=== PATIENT | female | born 1960 | race Caucasian/White ===

== ENCOUNTER → 2017-02-18 | Outpatient (CLI) | payer BC ==
--- NOTE | 2017-02-18 11:41 | P.HPOB ---
History of Present Illness H&P Date: 02/18/17 Chief Complaint: The patient is here for her routine gynecologic exam and mammogram. This is a 56-year-old with an LMP of 2001. The patient is status post [facility] BSO for benign reasons. She is without gynecologic complaints. Review of Systems She is getting about 16 pounds over the last year. She denies respiratory or cardiac problems. G.I. she has occasional loose stools and cramping with certain foods. Past Medical History Additional Past Medical History / Comment(s): Seasonal allergies. Past Surgical History: Hysterectomy ([facility] BSO in 2001) Additional Past Surgical History / Comment(s): Also left shoulder surgery, appendectomy and multiple colonoscopies in the past. Her most recent colonoscopy was in 2013. Past Psychological History: No Psychological Hx Reported Smoking Status: Former smoker (The patient quit smoking in 04/2016.) Past Alcohol Use History: Rare (Patient has about 1 alcohol containing drink per month.) Past Drug Use History: None Reported Additional History: The patient has been since 1988. 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 - Past Family History Father Family Medical History: Cancer (Father had lung cancer.) Additional Family Medical History / Comment(s): Also mother had pulmonary fibrosis and two maternal aunts had breast cancer. Medications and Allergies Home Medications and Allergies Comment(s): Multivitamin 1 daily, probiotic one daily, Zyrtec 1 daily, vitamin C 1 daily. Allergies Allergy/AdvReac Type Severity Reaction Status Date / Time nitrofurantoin Allergy Rapid Verified 02/18/17 11:31 [From Macrobid] Heart Rate Exam - Vital Signs Vital signs: Blood pressure 151/80, height 5'3", weight 217 pounds, BMI 38, temperature 97.9 , pulse 80. This is a well-developed well-nourished white female who is alert and oriented times 3 in no acute distress. HEENT: Within normal limits. NECK: Supple without mass or thyromegaly. CHEST AND LUNGS: Clear to auscultation. HEART: Regular rate and rhythm. BREASTS: Are without mass or discharge. AXILLARY EXAM: Negative for adenopathy. BACK: Negative for CVA tenderness. ABDOMEN: Obese,Soft, nontender, without palpable masses at rest. With Valsalva there is a 4 cm hernia at the low transverse incision. The hernia is soft and nontender. She has known about this hernia since the time after her appendectomy and it is asymptomatic. PELVIC EXAM: Normal external genitalia with mild atrophy. Vagina reveals a grade 2 cystocele. Vagina otherwise appears unremarkable. There is no unusual discharge. There are no palpable adnexal masses or tenderness. RECTAL EXAM: recto vaginal exam is negative for mass or tenderness and is negative for occult blood. EXTREMITIES: Nontender. IMPRESSION: 1. 56-year-old menopausal female who is status post GEMMA BSO for benign reasons. 2. Asymptomatic grade 2 cystocele. 3. Asymptomatic incisional hernia at her low transverse incision. PLAN: 1. Pap smears have been discontinued. 2. Self breast examination was discussed. 3. Mammogram will be done today. 4. We have discussed her elevated blood pressure. She will do home blood pressure checks and follow-up with Dr. Jovel for blood pressure elevations. She does have an appointment with Dr. Jovel today. 5. Osteoporosis prevention was discussed. Will plan on doing bone density testing next year. 6. She will return in one year.
--- NOTE | 2017-02-19 11:57 | MM ---
Reason for exam: screening (asymptomatic). Last mammogram was performed 1 year and 1 month ago. History: Patient is postmenopausal. Family history of premenopausal breast cancer in aunt at age 45 and premenopausal breast cancer in maternal aunt at age 45. Took estrogen for 7 years 5 months. Physical Findings: A clinical breast exam by your physician is recommended on an annual basis and results should be correlated with mammographic findings. MG Screening Mammo w CAD Bilateral CC and MLO view(s) were taken. Prior study comparison: January 30, 2016, bilateral MG 3d screening mammo w/cad. January 18, 2015, bilateral MG screening mammo w CAD. The breast tissue is heterogeneously dense. This may lower the sensitivity of mammography. There is no discrete abnormality. ASSESSMENT: Negative, BI-RAD 1 RECOMMENDATION: Routine screening mammogram of both breasts in 1 year.
== END | disposition home or self-care (01) ==
LOC: WWCWWP 10:41
PROVIDERS: ATTEND Obstetrics & Gynecology
DX: Z12.31 Encounter for screening mammogram for malignant neoplasm of breast (principal)

== ENCOUNTER → 2017-10-07 | Outpatient (CLI) | payer BC | END | disposition home or self-care (01) | LOC: LABWHC1 07:12 | PROVIDERS: ATTEND Orthopaedic Surgery | DX: Z01.818 Encounter for other preprocedural examination (principal); S83.242A Other tear of medial meniscus, current injury, left knee, initial encounter | CPT/HCPCS: 93005 ==

== ENCOUNTER → 2018-04-07 | Outpatient (CLI) | payer BC ==
[2018-04-07 14:07] VITALS: BP 145/84; PULSE 96; TEMP 97.5; BMI 38.6
--- NOTE | 2018-04-07 15:07 | P.HPOB ---
History of Present Illness H&P Date: 04/07/18 Chief Complaint: The patient is here for her routine gynecologic exam and mammogram. This is a 57-year-old with an LMP of 2001. She is status post GEMMA BSO for benign reasons. The patient is without gynecologic complaints. She denies any significant hot flashes. Review of Systems The patient's weight has been stable over the last year. She denies respiratory , cardiac, or G.I. problems. Musculoskeletal: occasional leg cramps. Past Medical History Past Medical History: No Reported History Additional Past Medical History / Comment(s): Seasonal allergies. 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 GEMMA BSO in 2001 and used ERT for 9 years. History of asymptomatic grade 2 cystocele. History of Any Multi-Drug Resistant Organisms: None Reported Past Surgical History: Hysterectomy (GEMMA BSO in 2001) Additional Past Surgical History / Comment(s): Also left shoulder surgery, appendectomy and multiple colonoscopies in the past. Her most recent colonoscopy was in 2013. Past Psychological History: No Psychological Hx Reported Smoking Status: Former smoker (Quit 05/09) Past Alcohol Use History: Occasional (15 per year) Past Drug Use History: None Reported Additional History: Quit smoking in 04/2015. 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 - Past Family History Father Family Medical History: Cancer (Lung cancer) Additional Family Medical History / Comment(s): Father had lung cancer. Also mother had pulmonary fibrosis and two maternal aunts had breast cancer. Medications and Allergies Home Medications Medication Instructions Recorded Confirmed Type Cetirizine HCl [Zyrtec] 5 mg PO DAILY 04/07/18 04/07/18 History Allergies Allergy/AdvReac Type Severity Reaction Status Date / Time nitrofurantoin Allergy Rapid Verified 04/07/18 13:55 [From Macrobid] Heart Rate Exam Vital Signs Temp Pulse BP 04/07/18 14:04 97.5 F L 96 145/84 Intake and Output 04/06/18 04/07/18 04/07/18 22:59 06:59 14:59 Other: Weight 98.883 kg Height 5'3", weight 218 pounds, BMI 38.6. This is a well-developed well-nourished heavyset white female who is alert and oriented times 3 in no acute distress. HEENT: Within normal limits. NECK: Supple without mass or thyromegaly. CHEST AND LUNGS: Clear to auscultation. HEART: Regular rate and rhythm. BREASTS: Are without mass or discharge. AXILLARY EXAM: Negative for adenopathy. BACK: Negative for CVA tenderness. ABDOMEN: Soft, nontender, without palpable masses. PELVIC EXAM: External genitalia appears normal with mild atrophy. Vagina appears normal with mild atrophy. There is no evidence of prolapse. Bimanual examination is negative for mass or tenderness. RECTAL EXAM: Rectovaginal exam is negative for mass or tenderness and is negative for occult blood. EXTREMITIES: Nontender. IMPRESSION: 1. 57-year-old menopausal female status post GEMMA BSO for benign reasons, with normal gynecologic exam. 2. History of an asymptomatic grade to cystocele which is not seeing at rest. 3. History of asymptomatic incisional hernia at her low transverse incision which is not noticeable at rest. PLAN: 1. Pap smears have been discontinued. 2. Self breast awareness was discussed with the patient. 3. Greening mammogram will be done today. 4. Osteoporosis prevention was discussed. I have stressed the importance of adequate calcium, vitamin D and regular exercise. Recommended amounts of calcium and vitamin D were also discussed. She had a normal bone density test done on 05/16/2009. Will plan on repeating this again at age 60. 5. She will return in one year.
--- NOTE | 2018-04-11 11:36 | MM ---
Reason for exam: screening (asymptomatic). Last mammogram was performed 1 year and 2 months ago. History: Patient is postmenopausal. Family history of premenopausal breast cancer in aunt at age 45 and premenopausal breast cancer in maternal aunt at age 45. Took estrogen for 7 years 5 months. MG 3D Screening Mammo W/Cad Bilateral CC and MLO view(s) were taken. Prior study comparison: February 18, 2017, bilateral MG screening mammo w CAD. January 30, 2016, bilateral MG 3d screening mammo w/cad. The breast tissue is extremely dense which could obscure a lesion on mammography. No significant changes when compared with prior studies. ASSESSMENT: Benign, BI-RAD 2 RECOMMENDATION: Routine screening mammogram of both breasts in 1 year.
== END | disposition home or self-care (01) ==
LOC: WWCWWP 13:55
PROVIDERS: ATTEND Obstetrics & Gynecology
DX: Z12.31 Encounter for screening mammogram for malignant neoplasm of breast (principal); Z78.0 Asymptomatic menopausal state
CPT/HCPCS: 77063; 77067

== ENCOUNTER → 2019-05-12 | Outpatient (CLI) | payer BC ==
--- NOTE | 2019-05-12 11:00 | P.ARTDOP ---
Arterial Doppler LOWER EXTREMITY ARTERIAL DOPPLER: DATE OF SERVICE: 05/12/2019 Reason for study: Suspected occlusive disease. Doppler waveforms: Multiphasic bilaterally throughout. Pulse volume recording: []. Pressure gradients: None. Ankle-brachial indices: 0.98 on the right and 0.95 on the left. Toe brachial indices: [] on the right, [] on the left Impression: Normal study.
== END | disposition home or self-care (01) ==
LOC: RADUSWWP 07:54
PROVIDERS: ATTEND Family Medicine
DX: M79.604 Pain in right leg (principal); M79.605 Pain in left leg; G60.8 Other hereditary and idiopathic neuropathies; G25.81 Restless legs syndrome; Z87.891 Personal history of nicotine dependence
CPT/HCPCS: 93923

== ENCOUNTER → 2020-03-02 | Outpatient (CLI) | payer BC | END | disposition home or self-care (01) | LOC: LABWHC1 09:59 | PROVIDERS: ATTEND Family Medicine | DX: Z20.828 Contact with and (suspected) exposure to other viral communicable diseases (principal) | CPT/HCPCS: U0003; C9803 ==

== ENCOUNTER → 2020-07-11 | Outpatient (CLI) | payer BC ==
[2020-07-11 09:33] VITALS: BP 140/90; PULSE 89; RESP 18; TEMP 97.6
--- NOTE | 2020-07-11 10:18 | P.HPOB ---
History of Present Illness H&P Date: 07/11/20 Chief Complaint: The patient is here for her routine gynecologic exam and ma mmogram. This is a 60-year-old with an LMP of 2001. The patient is without gynecologic complaints. She is status post GEMMA/BSO for benign reasons. She did experience 2 episodes of generalized abdominal pain, once at the beginning of May and once at the end of May. At the time she was experiencing some constipation that went into diarrhea. She denies any pain at this time. Review of Systems Weight has been stable. She denies respiratory or cardiac problems. GI: She did have some episodes of constipation and diarrhea in May. See the HPI.. Past Medical History Past Medical History: No Reported History Additional Past Medical History / Comment(s): Seasonal allergies. 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 GEMMA BSO in 2001 and used ERT for 9 years. History of asymptomatic grade 2 cystocele. History of Any Multi-Drug Resistant Organisms: None Reported Past Surgical History: Hysterectomy Additional Past Surgical History / Comment(s): Also left shoulder surgery, appendectomy and multiple colonoscopies in the past. Her most recent colonoscopy was in 2013. GEMMA/BSO in 2001. Past Psychological History: No Psychological Hx Reported Smoking Status: Former smoker Past Alcohol Use History: Occasional (2 per month.) Additional Past Alcohol Use History / Comment(s): Quit smoking in 2015. 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 - Past Family History Father Family Medical History: Cancer Additional Family Medical History / Comment(s): Father had lung cancer. Also mother had pulmonary fibrosis and two maternal aunts had breast cancer. Medications and Allergies Home Medications Medication Instructions Recorded Confirmed Type Montelukast [Singulair] 10 mg PO DAILY 05/12/19 07/11/20 History Calcium Carbonate/Vitamin D3 1 each PO DAILY 07/11/20 07/11/20 History [Calcium 500-Vit D3 15 Mcg (600 Iu)] Cholecalciferol (Vitamin D3) 125 mcg PO DAILY 07/11/20 07/11/20 History [Vitamin D3 (5000 Iu)] Multivit/Folic Acid/Vit K1 1 each PO DAILY 07/11/20 07/11/20 History [One-A-Day Women's 50 Plus Tab] Curtis Biotic 1 tab PO DAILY 07/11/20 07/11/20 History Zinc 50 mg PO DAILY 07/11/20 07/11/20 History Allergies Allergy/AdvReac Type Severity Reaction Status Date / Time nitrofurantoin Allergy Rapid Verified 07/11/20 09:23 [From Macrobid] Heart Rate Exam Vital Signs Temp Pulse Resp BP Pulse Ox 07/11/20 09:26 97.6 F 89 18 140/90 95 Intake and Output 07/10/20 07/11/20 07/11/20 22:59 06:59 14:59 Other: Weight 102.512 kg Blood pressure on the left side is 174/90. On the right side is 140/90. Height 5 feet 3 inches, weight 226 pounds, BMI 40.0. This is a well-developed well-nourished heavyset white female who is alert and oriented times 3 in no acute distress. HEENT: Within normal limits. NECK: Supple without mass or thyromegaly. CHEST AND LUNGS: Clear to auscultation. HEART: Regular rate and rhythm. BREASTS: Are without mass or discharge. AXILLARY EXAM: Negative for adenopathy. BACK: Negative for CVA tenderness. ABDOMEN: Obese, Soft, nontender, with a soft palpable mass just to the right of the midline and just above her low transverse incision scar. This is a soft mass measuring approximately 8 cm and is nontender. This is consistent with a abdominal wall hernia PELVIC EXAM: External genitalia appears normal with mild atrophy. Vagina appears normal mild atrophy. There is a stable grade 2 cystocele. Bimanual examination is negative for mass or tenderness. RECTAL EXAM: Rectovaginal exam is negative for mass or tenderness and is n egative for occult blood. EXTREMITIES: Nontender. IMPRESSION: 1. 60-year-old menopausal female status post GEMMA/BSO with a stable asymptomatic grade 2 cystocele. 2. Probable abdominal wall hernia just superior to her low transverse incision scar just to the right of the midline which has increased in size from her previous exam and now measures approximately 8 cm. 3. 2 episodes of generalized abdominal pain in May which has resolved. This may or may not have been related to the abdominal wall hernia in #2. 4. Elevated blood pressure. PLAN: 1. Pap smears have been discontinued. 2. Self breast awareness was discussed with the patient. 3. Screening mammogram will be done today. 4. She states she will be looking into getting a colonoscopy in the near future because of the episodes of abdominal pain in May. We have also discussed how the low abdominal wall hernia seems to have increased in size from a previous exam. I have recommended that she speak with a general surgeon regarding the abdominal wall hernia, the episodes of pain in the abdomen she had last month, and and GI symptoms with possible need for colonoscopy. She will arrange this through her primary care physician, Dr. Jovel. 5. Continue to follow the grade 2 cystocele conservatively. Again, I have recommended that she try to avoid increasing abdominal pressure with such things as heavy lifting and bearing down for constipation. I have also recommended that she avoid holding urine longer than necessary. 6. She will follow-up with planning for elevated blood pressures and we'll try to check her blood pressure on her own regularly.
--- NOTE | 2020-07-12 09:36 | MM ---
Reason for exam: screening (asymptomatic). Last mammogram was performed 1 year and 2 months ago. History: Patient is postmenopausal. Family history of premenopausal breast cancer in aunt at age 45 and premenopausal breast cancer in maternal aunt at age 45. Took estrogen for 7 years 5 months. Physical Findings: A clinical breast exam by your physician is recommended on an annual basis and results should be correlated with mammographic findings. MG 3D Screening Mammo W/Cad Bilateral CC and MLO view(s) were taken. Prior study comparison: May 12, 2019, bilateral MG 3d screening mammo w/cad. April 07, 2018, bilateral MG 3d screening mammo w/cad. The breast tissue is heterogeneously dense. This may lower the sensitivity of mammography. There are benign appearing round calcifications. There is no discrete abnormality. ASSESSMENT: Benign, BI-RAD 2 RECOMMENDATION: Routine screening mammogram of both breasts in 1 year.
== END | disposition home or self-care (01) ==
LOC: WWCWWP 09:17
PROVIDERS: ATTEND Obstetrics & Gynecology
DX: Z01.419 Encounter for gynecological examination (general) (routine) without abnormal findings (principal); Z12.31 Encounter for screening mammogram for malignant neoplasm of breast; N81.10 Cystocele, unspecified; R03.0 Elevated blood-pressure reading, without diagnosis of hypertension; Z87.891 Personal history of nicotine dependence; Z80.3 Family history of malignant neoplasm of breast; Z78.0 Asymptomatic menopausal state; Z90.722 Acquired absence of ovaries, bilateral; Z90.710 Acquired absence of both cervix and uterus
CPT/HCPCS: 77063; 77067

== ENCOUNTER 2020-10-02 09:50 | Day surgery (SDC) | payer BC ==
[2020-09-26 16:06] VITALS: BMI 38.9
[2020-10-02] MEDS: LACTATED RINGERS 1,000 ML IV SCH ×2 (10:20→10:34)
[2020-10-02 10:23] VITALS: RESP 16; TEMP 99
[2020-10-02] MEDS ORDERED: PROPOFOL 10 MG/ML 20 ML VIAL IV ONE (11:20)
[2020-10-02] MEDS ORDERED: LIDOCAINE 1% INJ 10MG/ML (20 ML MDV) ONE (11:20)
--- NOTE | 2020-10-02 12:05 | P.PCN ---
Date of Procedure: 10/02/20 Description of Procedure: BRIEF HISTORY: Patient is a 60-year-old female presenting for outpatient colonoscopy for history of colon polyps. Patient was last colonoscopy approximately 8 years ago. No change in bowel habits. She has reported an episode of severe lower abdominal pain a few months ago. Previously she has had polypectomy in the past. No family history of colon cancer. PROCEDURE PERFORMED: Colonoscopy with polypectomy. PREOPERATIVE DIAGNOSIS: History of colon polyps, patient reports last colonoscopy 8 years ago. ESTIMATED BLOOD LOSS: Minimal. IV sedation per Anesthesia. PROCEDURE: After informed consent was obtained, the patient, was brought into the endoscopy unit. IV sedation was administered by Anesthesia under continuous monitoring. Digital rectal examination was normal. Initially the Olympus CF-190 flexible video colonoscope was then inserted in the rectum, gradually advanced into the cecum without any difficulty. Careful examination was performed as the scope was gradually being withdrawn. Ileocecal valve and the appendiceal orifice were visualized and appeared normal. Prep was excellent. Mucosa of the cecum, ascending colon, transverse colon, descending colon, sigmoid colon, and rectum appeared normal, with small mouth diverticula noted throughout the sigmoid colon. The patient had 2 diminutive polyps measuring 1-2 mm in size removed from the cecum and proximal sigmoid colon with cold forcep polypectomy. A small 3 mm distal sigmoid polyp was removed with cold forcep polypectomy, located approximately 20 cm from anal verge. Retroflexion was performed in the rectum and no lesions were seen, low-grade internal hemorrhoids seen. The patient tolerated the procedure well. IMPRESSION: Sessile distal sigmoid polyp removed with cold snare polypectomy. 2 diminutive polyps removed with cold forcep polypectomy from the cecum and proximal sigmoid colon. Mild sigmoid diverticulosis. RECOMMENDATIONS: Findings of this examination were discussed with the patient and her family. Okay to resume diet. Okay to resume medications. Await pathology from polypectomies. Recommend repeat colonoscopy in 5 years for colon polyps pending pathology from polypectomies.
[2020-10-02 12:22] VITALS: BP 132/87; PULSE 80
== END 2020-10-02 12:56 | disposition home or self-care (01) ==
LOC: ORWHC2ENDO 09:50
PROVIDERS: ATTEND Internal Medicine
DX: Z12.11 Encounter for screening for malignant neoplasm of colon (principal); Z86.010 Personal history of colon polyps; K57.90 Diverticulosis of intestine, part unspecified, without perforation or abscess without bleeding; K64.8 Other hemorrhoids; Z87.891 Personal history of nicotine dependence; Z79.899 Other long term (current) drug therapy; Z88.3 Allergy status to other anti-infective agents
CPT/HCPCS: 88305; 45380; 45385; J2001; J2704

== ENCOUNTER → 2021-08-14 | Outpatient (CLI) | payer BC ==
[2021-08-14 12:56] VITALS: BP 133/90; PULSE 80; RESP 16; TEMP 97.9
--- NOTE | 2021-08-14 13:26 | P.HPOB ---
History of Present Illness H&P Date: 08/14/21 Chief Complaint: The patient is here for her routine gynecologic exam and ma mmogram. This is a 61-year-old with an LMP of 2001. The patient is without gynecologic complaints. She is status post GEMMA/BSO for benign reasons. She has a known small cystocele which does not seem to cause her any problems. Review of Systems The patient's weight has been stable over the last year. She denies respiratory, cardiac, or G.I. problems. Past Medical History Past Medical History: No Reported History Additional Past Medical History / Comment(s): Seasonal allergies. History of Any Multi-Drug Resistant Organisms: None Reported Past Surgical History: Appendectomy, Hysterectomy, Orthopedic Surgery Additional Past Surgical History / Comment(s): right shoulder surgery, multiple colonoscopies Past Anesthesia/Blood Transfusion Reactions: No Reported Reaction Past Psychological History: No Psychological Hx Reported Smoking Status: Former smoker Past Alcohol Use History: Occasional (1-2 per month) Additional Past Alcohol Use History / Comment(s): Quit smoking in 2015. 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 - Past Family History Father Family Medical History: Cancer Additional Family Medical History / Comment(s): Father had lung cancer. Also mother had pulmonary fibrosis and two maternal aunts had breast cancer. Sister(s) Family Medical History: Cancer Additional Family Medical History / Comment(s): Breast cancer. Medications and Allergies Home Medications Medication Instructions Recorded Confirmed Type Montelukast [Singulair] 10 mg PO DAILY 05/12/19 08/14/21 History L.acidoph,Paracasei, B.lactis 1 each PO DAILY 09/26/20 08/14/21 History [Probiotic] Multivitamins, Thera [Multivitamin 1 tab PO DAILY 09/26/20 08/14/21 History (formulary)] Allergies Allergy/AdvReac Type Severity Reaction Status Date / Time nitrofurantoin Allergy Rapid Verified 08/14/21 12:52 [From Macrobid] Heart Rate Exam Vital Signs Temp Pulse Resp BP Pulse Ox 08/14/21 12:53 97.9 F 80 16 133/90 98 Intake and Output 08/13/21 08/14/21 08/14/21 22:59 06:59 14:59 Other: Weight 102.965 kg Height 5 feet 3 inches, weight 227 pounds, BMI 40.2. This is a well-developed well-nourished heavyset white female who is alert and oriented times 3 in no acute distress. HEENT: Within normal limits. NECK: Supple without mass or thyromegaly. CHEST AND LUNGS: Clear to auscultation. HEART: Regular rate and rhythm. BREASTS: Are without mass or discharge. AXILLARY EXAM: Negative for adenopathy. BACK: Negative for CVA tenderness. ABDOMEN: Soft, obese, nontender, without palpable masses. There is redness in the crease beneath the inferior abdomen pannus. The patient denies itching or irritation. PELVIC EXAM: External genitalia appears normal with mild atrophy. Vagina appears normal mild atrophy. There is a stable grade 2 cystocele. Bimanual examination is negative for mass or tenderness. RECTAL EXAM: Rectovaginal exam is negative for mass or tenderness and is negative for occult blood. EXTREMITIES: Nontender. IMPRESSION: 1. 61-year-old menopausal female status post GEMMA/BSO for benign reasons, with stable asymptomatic grade 2 cystocele. 2. Asymptomatic Intertrigo beneath the low abdomen pannus. PLAN: 1. Pap smears have been discontinued. 2. Self breast awareness was discussed with the patient. We have also discussed symptoms associated with inflammatory breast cancer. 3. Screening mammogram will be done today. 4. We have discussed the redness beneath the low abdominal pannus. I have recommended that she try to keep this area clean and dry. She can use [id number] antifungal medication cream as directed for this. 5. Conservative management for her stable grade 2 cystocele. 6. She has completed her Covid vaccination series and did receive a booster. 7. She was advised to return in one year for her annual well woman exam.
--- NOTE | 2021-08-16 14:54 | MM ---
Reason for Exam: Screening (asymptomatic). Last mammogram was performed 1 year(s) and 1 month(s) ago. Patient History: Menarche at age 15. First Full-Term at age 24. Left ovary removed at age 41. Right ovary removed at age 41. Hysterectomy at age 41. Postmenopausal. Estrogen for 7 years, 5 months. Maternal aunt had breast cancer, age 45. Maternal aunt had breast cancer, age 45. Risk Values: Naida 5 year model risk: 1.2%. NCI Lifetime model risk: 5.8%. Film Views: Bilateral CC views were taken. Bilateral MLO views were taken. Prior Study Comparison: 04/07/2018 Bilateral Screening Mammogram, [facility]. 05/12/2019 Bilateral Screening Mammogram, [facility]. 07/11/2020 Bilateral Screening Mammogram, [facility]. Tissue Density: The breast tissue is heterogeneously dense. This may lower the sensitivity of mammography. Findings: Analyzed By CAD. There is no suspicious group of microcalcifications or new suspicious mass in either breast. Overall Assessment: Benign, BI-RAD 2 Management: Screening Mammogram of both breasts in 1 year. A clinical breast exam by your physician is recommended on an annual basis and results should be correlated with mammographic findings. Electronically signed and approved by: Brando Garber M.D. Radiologis
== END | disposition home or self-care (01) ==
LOC: WWCWWP 12:29
PROVIDERS: ATTEND Obstetrics & Gynecology
DX: Z12.31 Encounter for screening mammogram for malignant neoplasm of breast (principal)
CPT/HCPCS: 77063; 77067

== ENCOUNTER 2022-01-03 11:10 | Emergency (ER) | payer BC ==
[2022-01-03 12:09] VITALS: TEMP 97.6
--- NOTE | 2022-01-03 12:26 | ED ---
General Adult HPI - General Chief complaint: Neuro Symptoms/Deficit Stated complaint: Facial and body numbness,PCP sent for poss stroke Time Seen by Provider: 01/03/22 12:11 Source: patient Mode of arrival: ambulatory Limitations: no limitations - History of Present Illness Initial comments: Dictation was produced using [employer] dictation software. please excuse any grammatical, word or spelling errors. 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 She touched the phone of a student who is parents are known to be meth users. Patient states that perhaps she was expressing side effects from touching the student's phone. Patient states that around 8:00 AM she began having paresthesias to both arms, bilateral tongue and droopy left eye. Patient states she also felt a strange sensation to the top of her head. Symptoms lasted for several minutes. 30 minutes prior to arrival patient states that her symptoms are completely resolved. After the exposure she went to her primary care physician's office today did a urine drug screen. Shortly after he was recommended to her to come to the emergency department for evaluation. Has any history of strokes. She denies any significant comorbidities. The ROS documented in this emergency department record has been reviewed and confirmed by me. Those systems with pertinent positive or negative responses have been documented in the HPI. All other systems are other negative and/or noncontributory. PHYSICAL EXAM: General Impression: Alert and oriented x3, not in acute distress HEENT: Normocephalic atraumatic, extra-ocular movements intact, pupils equal and reactive to light bilaterally, mucous membranes moist. Cardiovascular: Heart regular rate and rhythm Chest: Able to complete full sentences, no retractions, no tachypnea Abdomen: abdomen soft, non-tender, non-distended, no organomegaly Musculoskeletal: Pulses present and equal in all extremities, no peripheral edema Motor: no focal deficits noted Neurological: CN II-XII grossly intact, no focal motor or sensory deficits noted, NIH 0 Skin: Intact with no visualized rashes Psych: Normal affect and mood ED course: 61-year-old male presents to the emergency department for Chambers neuropathic symptoms that was short-lived in nature. Her symptoms are nonfocal. No suspicion for CVA clinically. Physical exam at the bedside is unremarkable. Vital signs are stable. Laboratory evaluation obtained. CBC and metabolic panel is unremarkable. No electrolyte abnormalities. Patient observed in emergency department for 2 hours and 15 minutes. Reevaluated at bedside at 1:30 PM on been stable medical condit ion. Clinical presentation consistent with brief episode of peripheral neuropathy. Patient discharged advised follow-up with primary care doctor. - Related Data Home Medications Medication Instructions Recorded Confirmed Montelukast [Singulair] 10 mg PO DAILY 05/12/19 08/14/21 L.acidoph,Paracasei, B.lactis 1 each PO DAILY 09/26/20 08/14/21 [Probiotic] Multivitamins, Thera [Multivitamin 1 tab PO DAILY 09/26/20 08/14/21 (formulary)] Allergies Allergy/AdvReac Type Severity Reaction Status Date / Time nitrofurantoin Allergy Rapid Verified 01/03/22 12:09 [From Macrobid] Heart Rate Review of Systems ROS Statement: Those systems with pertinent positive or pertinent negative responses have been documented in the HPI. ROS Other: All systems not noted in ROS Statement are negative. Past Medical History Past Medical History: No Reported History Additional Past Medical History / Comment(s): Seasonal allergies. History of Any Multi-Drug Resistant Organisms: None Reported Past Surgical History: Appendectomy, Hysterectomy, Orthopedic Surgery Additional Past Surgical History / Comment(s): right shoulder surgery, multiple colonoscopies Past Anesthesia/Blood Transfusion Reactions: No Reported Reaction Past Psychological History: No Psychological Hx Reported Smoking Status: Former smoker Past Alcohol Use History: Occasional Past Drug Use History: None Reported - Past Family History Father Family Medical History: Cancer Additional Family Medical History / Comment(s): Father had lung cancer. Also mother had pulmonary fibrosis and two maternal aunts had breast cancer. Sister(s) Family Medical History: Cancer Additional Family Medical History / Comment(s): Breast cancer. General Exam Limitations: no limitations Course Vital Signs 01/03/22 12:06 Temperature 97.6 F Pulse Rate 76 Respiratory 20 Rate Blood Pressure 158/103 O2 Sat by Pulse 99 Oximetry Medical Decision Making - Lab Data Result diagrams: 01/03/22 12:32 01/03/22 12:32 Lab Results 01/03/22 01/03/22 Range/Units 12:32 12:32 WBC 9.9 (3.8-10.6) k/uL RBC 5.22 (3.80-5.40) m/uL Hgb 15.2 (11.4-16.0) gm/dL Hct 44.1 (34.0-46.0) % MCV 84.5 (80.0-100.0) fL MCH 29.0 (25.0-35.0) pg MCHC 34.4 (31.0-37.0) g/dL RDW 13.6 (11.5-15.5) % Plt Count 245 (150-450) k/uL MPV 7.9 Neutrophils % 64 % Lymphocytes % 25 % Monocytes % 6 % Eosinophils % 3 % Basophils % 1 % Neutrophils # 6.3 (1.3-7.7) k/uL Lymphocytes # 2.5 (1.0-4.8) k/uL Monocytes # 0.6 (0-1.0) k/uL Eosinophils # 0.3 (0-0.7) k/uL Basophils # 0.1 (0-0.2) k/uL Sodium 140 (137-145) mmol/L Potassium 4.3 (3.5-5.1) mmol/L Chloride 104 (98-107) mmol/L Carbon Dioxide 26 (22-30) mmol/L Anion Gap 10 mmol/L BUN 14 (7-17) mg/dL Creatinine 0.72 (0.52-1.04) mg/dL Est GFR (CKD-EPI)AfAm >90 (>60 ml/min/1.73 sqM) Est GFR (CKD-EPI)NonAf >90 (>60 ml/min/1.73 sqM) Glucose 100 H (74-99) mg/dL Calcium 9.6 (8.4-10.2) mg/dL Magnesium 2.1 (1.6-2.3) mg/dL Disposition Clinical Impression: Neuropathy Disposition: HOME SELF-CARE Condition: Good Instructions (If sedation given, give patient instructions): Paresthesia (ED) Is patient prescribed a controlled substance at d/c from ED?: No Referrals: Rocio Jovel MD [Primary Care Provider] - 1-2 days Time of Disposition: 13:27
[2022-01-03 12:57] LABS: Basophils # (A) 0.1 k/uL (0-0.2); Basophils % (A) 1 %; Eosinophils # (A) 0.3 k/uL (0-0.7); Eosinophils % (A) 3 %; HCT 44.1 % (34.0-46.0); HGB 15.2 gm/dL (11.4-16.0); Lymphocytes # (A) 2.5 k/uL (1.0-4.8); Lymphocytes % (A) 25 %; MCHC 34.4 g/dL (31.0-37.0); MCV 84.5 fL (80.0-100.0); Mean Platelet Volume 7.9; Monocytes # (A) 0.6 k/uL (0-1.0); Monocytes % (A) 6 %; Neutrophils # (A) 6.3 k/uL (1.3-7.7); Neutrophils % (A) 64 %; Platelet Count 245 k/uL (150-450); RBC 5.22 m/uL (3.80-5.40); RDW 13.6 % (11.5-15.5); WBC 9.9 k/uL (3.8-10.6)
[2022-01-03 13:09] LABS: African American GFR (CKD) >90 (>60 ml/min/1.73 sqM); Anion Gap 10 mmol/L; Blood Urea Nitrogen 14 mg/dL (7-17); Calcium 9.6 mg/dL (8.4-10.2); Carbon Dioxide 26 mmol/L (22-30); Chloride 104 mmol/L (98-107); Glucose 100 mg/dL (74-99); Magnesium 2.1 mg/dL (1.6-2.3); Non-African American GFR(CKD) >90 (>60 ml/min/1.73 sqM); Potassium 4.3 mmol/L (3.5-5.1); Sodium 140 mmol/L (137-145)
[2022-01-03 13:46] VITALS: BP 145/90; PULSE 78; RESP 18
== END 2022-01-03 13:46 | disposition home or self-care (01) ==
LOC: EC 11:10
DX: G62.9 Polyneuropathy, unspecified (principal); Z88.3 Allergy status to other anti-infective agents; Z87.891 Personal history of nicotine dependence
CPT/HCPCS: 36415; 80048; 83735; 85025; 93005; 99284

== ENCOUNTER → 2022-11-05 | Outpatient (CLI) | payer BC ==
[2022-11-05 09:42] VITALS: BP 132/86; PULSE 80; RESP 18; TEMP 97.6
--- NOTE | 2022-11-05 10:07 | P.HPOB ---
History of Present Illness H&P Date: 11/05/22 Chief Complaint: The patient is here for her routine gynecologic exam and ma mmogram. This is a 62-year-old with an LMP of 2001. The patient is without gynecologic complaints. She is status post GEMMA/BSO for benign reasons. She has a known small cystocele which does not cause any problems for her. Review of Systems She has gained about 5 pounds over the past year. She denies respiratory or GI problems. Cardiac: She had occasional palpitations when she was in [place] last winter. She is seeing a it coordinator for this currently. Past Medical History Past Medical History: No Reported History Additional Past Medical History / Comment(s): Seasonal allergies. 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 She has a known grade 2 cystocele. History of Any Multi-Drug Resistant Organisms: None Reported Past Surgical History: Appendectomy, Hysterectomy, Orthopedic Surgery Additional Past Surgical History / Comment(s): right shoulder surgery, multiple colonoscopies Past Anesthesia/Blood Transfusion Reactions: No Reported Reaction Past Psychological History: No Psychological Hx Reported Smoking Status: Former smoker Past Alcohol Use History: Occasional (1-2 per month.) Additional Past Alcohol Use History / Comment(s): Quit smoking in 2015. 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 She spends part of the year in [place]. - Past Family History Father Family Medical History: Cancer Additional Family Medical History / Comment(s): Father had lung cancer. Also mother had pulmonary fibrosis and two maternal aunts had breast cancer. Sister(s) Family Medical History: Cancer Additional Family Medical History / Comment(s): Breast cancer. Medications and Allergies Home Medications Medication Instructions Recorded Confirmed Type Montelukast [Singulair] 10 mg PO DAILY 05/12/19 11/05/22 History L.acidoph,Paracasei, B.lactis 1 each PO DAILY 09/26/20 11/05/22 History [Probiotic] Multivitamins, Thera [Multivitamin 1 tab PO DAILY 09/26/20 11/05/22 History (formulary)] Allergies Allergy/AdvReac Type Severity Reaction Status Date / Time nitrofurantoin Allergy Rapid Verified 11/05/22 09:36 [From Macrobid] Heart Rate Exam Vital Signs Temp Pulse Resp BP Pulse Ox 11/05/22 09:36 97.6 F 80 18 132/86 97 Intake and Output 11/04/22 11/05/22 11/05/22 22:59 06:59 14:59 Other: Weight 105.233 kg Height 5 feet 2 inches, weight 232 pounds, BMI 42.4. This is a well-developed well-nourished heavyset white female who is alert and oriented times 3 in no acute distress. HEENT: Within normal limits. NECK: Supple without mass or thyromegaly. CHEST AND LUNGS: Clear to auscultation. HEART: Regular rate and rhythm. BREASTS: Are without mass or discharge. AXILLARY EXAM: Negative for adenopathy. BACK: Negative for CVA tenderness. ABDOMEN: Soft, nontender, without palpable masses. PELVIC EXAM: External genitalia appears normal with mild atrophy. Vagina appears normal with mild atrophy. There is a stable grade 2 cystocele. The vaginal cuff is well supported. Bimanual examination is negative for mass or tenderness. RECTAL EXAM: Rectovaginal exam is negative for mass or tenderness and is negative for occult blood. EXTREMITIES: Nontender. IMPRESSION: 1. 62 year old menopausal female status post GEMMA/BSO for benign reasons, with a stable asymptomatic grade 2 cystocele. PLAN: 1. Pap smears have been discontinued. 2. Self breast awareness was discussed with the patient. We have also discussed symptoms associated with inflammatory breast cancer. 3. Screening mammogram will be done today. 4. Osteoporosis prevention was discussed. Her last bone density test was normal on 05/12/2019. We will plan on repeating this in approximately 2025. 5. She was advised to return in one year for her annual well woman exam.
--- NOTE | 2022-11-06 14:31 | MM ---
Reason for Exam: Screening (asymptomatic). Last mammogram was performed 1 year(s) and 3 month(s) ago. Patient History: Menarche at age 15. First Full-Term at age 24. Left ovary removed at age 41. Right ovary removed at age 41. Hysterectomy at age 41. Postmenopausal. Patient has history of breast feeding. Estrogen for 7 years, 5 months. Maternal aunt had breast cancer, age 45. Maternal aunt had breast cancer, age 45. Risk Values: Naida 5 year model risk: 1.2%. NCI Lifetime model risk: 5.7%. Prior Study Comparison: 01/30/2016 Bilateral Screening Mammogram, [facility]. 02/18/2017 Bilateral Screening Mammogram, [facility]. 04/07/2018 Bilateral Screening Mammogram, [facility]. 05/12/2019 Bilateral Screening Mammogram, [facility]. 07/11/2020 Bilateral Screening Mammogram, [facility]. 08/14/2021 Bilateral MG 3D screening mammo w/cad, [facility]. Tissue Density: The breast tissue is heterogeneously dense. This may lower the sensitivity of mammography. Findings: Analyzed By CAD. The pattern appears symmetrical and stable. No significant interval change is evident. No suspicious groups of microcalcifications, spiculated or lobular masses, architectural distortion or other secondary signs of malignancy are mammographically apparent. Overall Assessment: Benign, BI-RAD 2 Management: Screening Mammogram of both breasts in 1 year. A negative mammogram report should not preclude additional follow up of suspicious palpable abnormalities. Patient should continue monthly self breast exam. A clinical breast exam by your physician is recommended on an annual basis and results should be correlated with mammographic findings. Electronically signed and approved by: Fabian Chamberlain D.O. Radiologis
== END ==
LOC: WWCWWP 09:13
PROVIDERS: ATTEND Obstetrics & Gynecology
DX: Z01.419 Encounter for gynecological examination (general) (routine) without abnormal findings (principal); Z12.31 Encounter for screening mammogram for malignant neoplasm of breast; N81.10 Cystocele, unspecified; Z80.3 Family history of malignant neoplasm of breast; Z87.891 Personal history of nicotine dependence; Z88.1 Allergy status to other antibiotic agents; Z90.722 Acquired absence of ovaries, bilateral; Z78.0 Asymptomatic menopausal state; Z88.8 Allergy status to other drugs, medicaments and biological substances
CPT/HCPCS: 77063; 77067

== ENCOUNTER → 2023-09-16 | Outpatient (CLI) | payer BC ==
--- NOTE | 2023-09-16 13:19 | CT ---
EXAMINATION TYPE: CT chest w con DATE OF EXAM: 09/16/2023 COMPARISON: 05/07/2022 HISTORY: nodules CT DLP: 739 mGycm Automated exposure control for dose reduction was used. CONTRAST: CT scan of the chest is performed with IV Contrast, patient injected with 100 mL of Isovue 370. FINDINGS: LUNGS: Multiple scattered bilateral calcified and noncalcified nodules measuring 6 mm and less in siz e. No new nodules or increasing nodule seen. No evidence of pulmonary mass. No consolidative process. No pleural effusion. MEDIASTINUM: Calcified hilar mediastinal lymph nodes compatible with granulomatous disease. There are no greater than 1 cm hilar or mediastinal lymph nodes. No pericardial effusion is seen. Thoracic aorta is of normal caliber. The heart is not enlarged. UPPER ABDOMEN: Mild hepatic steatosis. OTHER: No additional significant abnormality is seen. IMPRESSION: No changes and features of granulomatous disease. No increasing or new nodules appreciated.
== END | disposition home or self-care (01) ==
LOC: RADCTMAIN 12:15
PROVIDERS: ATTEND Internal Medicine
DX: J84.10 Pulmonary fibrosis, unspecified (principal); R91.8 Other nonspecific abnormal finding of lung field
CPT/HCPCS: 71260; Q9967

== ENCOUNTER → 2023-12-16 | Outpatient (CLI) | payer BC ==
[2023-12-16 11:41] VITALS: BP 159/84; PULSE 78; RESP 17; TEMP 98.3
--- NOTE | 2023-12-16 12:12 | P.HPOB ---
History of Present Illness H&P Date: 12/16/23 Chief Complaint: The patient is here for her routine gynecologic exam and ma mmogram. This is a 63-year-old G2, P2 with an LMP of 2001. She is status post GEMMA/BSO for benign reasons. She has a known small cystocele which she states causes her no problems. She denies any problems from a suspected incisional hernia noted above the low transverse abdominal scar. She is without gynecologic complaints. Review of Systems The patient has gained 3 pounds over the last year. She denies respiratory, cardiac, or G.I. problems. Musculoskeletal: She has been having some right knee problems and is seeing somebody for this. Past Medical History Past Medical History: No Reported History Additional Past Medical History / Comment(s): Seasonal allergies. 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 She has a known grade 2 cystocele. History of Any Multi-Drug Resistant Organisms: None Reported Past Surgical History: Appendectomy, Hysterectomy, Orthopedic Surgery Additional Past Surgical History / Comment(s): right shoulder surgery, multiple colonoscopies. Right arthroscopic knee surgery. Past Anesthesia/Blood Transfusion Reactions: No Reported Reaction Past Psychological History: No Psychological Hx Reported Smoking Status: Former smoker Past Alcohol Use History: Occasional (About 2 drinks per month.) Additional Past Alcohol Use History / Comment(s): Quit smoking in 2015. 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 She spends part of the year in [place]. - Past Family History Father Family Medical History: Cancer Additional Family Medical History / Comment(s): Father had lung cancer. Also mother had pulmonary fibrosis and two maternal aunts had breast cancer. Sister(s) Family Medical History: Cancer Additional Family Medical History / Comment(s): Breast cancer. Medications and Allergies Home Medications Medication Instructions Recorded Confirmed Type Montelukast [Singulair] 10 mg PO DAILY 05/12/19 12/16/23 History L.acidoph,Paracasei, B.lactis 1 each PO DAILY 09/26/20 12/16/23 History [Probiotic] Multivitamins, Thera [Multivitamin 1 tab PO DAILY 09/26/20 12/16/23 History (formulary)] Cholecalciferol [Vitamin D3 (25 1 tab PO DAILY 12/16/23 12/16/23 History Mcg = 1000 Iu)] Cyanocobalamin (Vitamin B-12) 1 tab PO DAILY 12/16/23 12/16/23 History [Vitamin B-12] Allergies Allergy/AdvReac Type Severity Reaction Status Date / Time nitrofurantoin Allergy Rapid Verified 12/16/23 11:38 [From Macrobid] Heart Rate Exam Vital Signs Temp Pulse Resp BP Pulse Ox 12/16/23 11:39 98.3 F 78 17 159/84 96 Intake and Output 12/15/23 12/16/23 12/16/23 22:59 06:59 14:59 Other: Weight 106.594 kg Height 5 feet 2 inches, weight 235 pounds, BMI 43.0. This is a well-developed well-nourished heavyset white female who is alert and oriented times 3 in no acute distress. HEENT: Within normal limits. NECK: Supple without mass or thyromegaly. CHEST AND LUNGS: Clear to auscultation. HEART: Regular rate and rhythm. BREASTS: Are without mass or discharge. AXILLARY EXAM: Negative for adenopathy. BACK: Negative for CVA tenderness. ABDOMEN: Soft, nontender, with a palpable soft area measuring approximately 4 cm in the midline superior to her low transverse incision. This is nontender. This likely represents a small incisional hernia. PELVIC EXAM: External genitalia appears normal with mild atrophy. Vagina appears normal mild atrophy. There is a stable grade 2 cystocele. Bimanual examination is negative for mass or tenderness. RECTAL EXAM: Rectovaginal exam is negative for mass or tenderness and is negative for occult blood. EXTREMITIES: Nontender. IMPRESSION: 1. 63-year-old menopausal female status post GEMMA/BSO for benign reasons, with stable asymptomatic grade 2 cystocele. 2. Suspected small incisional hernia in the midline superior to her low transverse incision which is asymptomatic and nontender. 3. Elevated blood pressure. PLAN: 1. Pap smears have been discontinued. 2. Self breast awareness was discussed with the patient. We have also discussed symptoms associated with inflammatory breast cancer. 3. Screening mammogram will be done today. 4. We have discussed her elevated blood pressure. I recommended that she check her own blood pressures at home since she does have a cuff. She will follow-up with her PCP for blood pressure elevations. 5. Osteoporosis prevention was discussed. I have stressed the importance of adequate calcium, vitamin D and regular exercise. Recommended amounts of calcium and vitamin D were also discussed. She had a normal bone density test in 2020. We will plan on repeating this after approximately 6 years. 6. Continue conservative management for her small cystocele and a small incisional hernia. She was instructed to call if problems. 7. She was advised to return in one year for her annual well woman exam and as needed.
== END ==
LOC: WWCWWP 11:05
PROVIDERS: ATTEND Obstetrics & Gynecology
DX: Z12.31 Encounter for screening mammogram for malignant neoplasm of breast (principal); R03.0 Elevated blood-pressure reading, without diagnosis of hypertension; N99.3 Prolapse of vaginal vault after hysterectomy; Z90.722 Acquired absence of ovaries, bilateral; Z90.710 Acquired absence of both cervix and uterus; Z87.891 Personal history of nicotine dependence; Z80.3 Family history of malignant neoplasm of breast; Z78.0 Asymptomatic menopausal state; Z88.1 Allergy status to other antibiotic agents; Z79.899 Other long term (current) drug therapy

== ENCOUNTER → 2024-06-28 | Outpatient (CLI) | payer BC ==
--- NOTE | 2024-06-28 17:15 | CT ---
EXAMINATION TYPE: CT abdomen pelvis w con DATE OF EXAM: 06/28/2024 4:41 PM COMPARISON: None. CLINICAL INDICATION: Female, 64 years old with history of K57.32 DVTRCLI OF LG INT W/O PERFORAT R10.8 4 R11.0; positional mid-abdominal pain x 10 days. TECHNIQUE: CT and abdomen and pelvis after IV contrast. Delayed images through the kidneys and alcala l/sagittal reconstructions performed. Contrast used:100 ml mL of Isovue 300 with IV Contrast, (none if empty) Oral contrast used: with Oral Contrast (none if empty) CT DLP: 2399.1 mGycm, Automated exposure control for dose reduction was used. FINDINGS: LOWER CHEST: Numerous calcified granulomas in the lower lungs. Heart normal size without pericardial effusion. No pleural effusion. ABDOMEN LIVER: Unremarkable GALLBLADDER AND BILE DUCTS: Unremarkable. PANCREAS: Unremarkable. SPLEEN: Upper limits of normal at 13.5 cm measured on axial series. A few calcified granulomas are no neo. ADRENAL GLANDS: Unremarkable. KIDNEYS AND URETERS: No evidence of hydronephrosis or renal calculus. The ureters are unremarkable. PELVIS BLADDER: Trace nondependent air located within the bladder lumen. REPRODUCTIVE: Surgically absent. ABDOMEN & PELVIS STOMACH AND BOWEL: No evidence of bowel obstruction. 3.7 cm diverticulum of the third portion of the duodenum projecting superiorly into the pancreatic head region. There is sigmoid diverticulosis. Mild pericolonic inflammatory fat stranding extending superiorly from the mid sigmoid colon. Some surgica l material in the right lower quadrant suggest prior appendectomy. PERITONEUM/RETROPERITONEUM: No evidence of pneumoperitoneum or free fluid. VASCULATURE: No evidence of aortic aneurysm. Incidental retroaortic left renal vein. MUSCULOSKELETAL: Hypertrophic facet arthropathy mid to lower lumbar spine with degenerative grade 1 a nterolisthesis L4-L5. LYMPH NODES: No gross evidence for lymphadenopathy. SOFT TISSUE/ABDOMINAL WALL: There is an infraumbilical midline ventral abdominal wall hernia. The abd ominal wall defect measures 3.3 cm wide. The hernia sac contains omental fat and a short segment of n onobstructed small bowel. The hernia measures up to 9.0 cm wide by 9.1 cm AP by 6.8 cm craniocaudal. Some mild fat stranding within the hernia sac probably chronic change but should be correlated for an y focal pain. IMPRESSION: 1. Exam positive for mild acute diverticulitis involving the mid sigmoid colon. No abscess or free a ir. 2. Infraumbilical midline ventral abdominal wall hernia mostly containing fat and measuring up to 9.1 cm. The abdominal wall defect measures 3.3 cm wide. Some mild fat stranding within the hernia sac berkowitz spected to be chronic change but should be correlated for any focal pain to exclude mild inflammation here. 3. Trace air within the bladder lumen. Correlate to exclude cystitis and for any recent instrumentati on. No fistulous communication identified to the bladder. [facility], , 06/28/2024 5:13 PM
== END | disposition home or self-care (01) ==
LOC: RADCTMAIN 14:51
PROVIDERS: ATTEND Family Medicine
DX: K57.32 Diverticulitis of large intestine without perforation or abscess without bleeding (principal); K43.9 Ventral hernia without obstruction or gangrene
CPT/HCPCS: 74177; Q9967